=== PATIENT | male | born 1985 | race Asian ===

== ENCOUNTER 2018-07-06 15:34 | Emergency (ER) | payer OTHER ==
[~2018-07-06] VITALS: Ht 180.3 cm; Wt 95.3 kg
[2018-07-06 15:47] VITALS: BP 137/87
--- NOTE | 2018-07-06 16:32 | Emergency Room Report ---
History of Present Illness General Chief Complaint: Upper Extremity Injury Source: Patient Present Illness HPI 32-year-old male presents emergency department complaining of 6 out of 10 in severity pain is localized to the right wrist with associated swelling and tenderness. 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 Patient denies previous injury to this extremity. Denies numbness tingling or loss of sensation or gross motor movements of the extremities, incontinence of bowel or bladder. Denies CP, Palpitations, LOC, AMS, dizziness, Changes in Vision, weakness or a sudden severe headache. Allergies: Coded Allergies: No Known Allergies (Unverified , 07/06/18) Patient History Past Medical History: see triage record Past Surgical History: none Pertinent Family History: none Reviewed Nursing Documentation: PMH: Agreed; PSxH: Agreed Nursing Documentation-PMH Past Medical History: No History, Except For Hx Cardiac Problems: Yes - Rheumatic fever, heart murmur Hx Hypertension: Yes Review of Systems All Other Systems: negative except mentioned in HPI Physical Exam Vital Signs Date Time Temp Pulse Resp B/P (MAP) Pulse Ox O2 Delivery O2 Flow Rate FiO2 07/06/18 15:39 98.2 72 16 137/87 96 Room Air 98.2 Sp02 EP Interpretation: reviewed, normal General Appearance: alert, GCS 15, non-toxic, mild distress Head: normocephalic, atraumatic Eyes: bilateral eye normal inspection, bilateral eye PERRL ENT: hearing grossly normal, normal voice Neck: full range of motion Respiratory: lungs clear, normal breath sounds, speaking full sentences Cardiovascular #1: regular rate, rhythm, normal capillary refill Cardiovascular #2: 2+ radial (R), 2+ radial (L) Musculoskeletal: back normal, gait/station normal, normal range of motion, swelling - right wrist, tender - Lateral right wrist. Neurologic: alert, oriented x3, responsive, motor strength/tone normal, sensory intact, normal gait, speech normal, grossly normal Psychiatric: judgement/insight normal Skin: normal color, no rash, warm/dry, well hydrated Medical Decision Making PA Attestation Dr. Dahl is my supervising Physician whom patient management has been discussed with. Diagnostic Impression: Primary Impression: Injury of ulnar collateral ligament of wrist Qualified Codes: S66.801A - Unspecified injury of other specified muscles, fascia and tendons at wrist and hand level, right hand, initial encounter Additional Impression: Sprain of ulnar collateral ligament of wrist Qualified Codes: S63.591A - Other specified sprain of right wrist, initial encounter ER Course 32-year-old male presents emergency department complaining of 6 out of 10 in severity pain is localized to the right wrist with associated swelling and tenderness. 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 Patient denies previous injury to this extremity. Denies numbness tingling or loss of sensation or gross motor movements of the extremities, incontinence of bowel or bladder. Denies CP, Palpitations, LOC, AMS, dizziness, Changes in Vision, weakness or a sudden severe headache. Ddx considered but are not limited to Fracture, dislocation, contusion, Sprain/ Strain/Spasm, just to name a few. Vital signs: are WNL, pt. is afebrile H&PE are most consistent with musculoskeletal injury will perform imaging to r/ o fractures/dislocations. ORDERS: - X-ray Right Wrist 3 views : abnormal joint space of ulna ED INTERVENTIONS: - Motrin 600mg PO -Right volar wrist splint applied by community planning technician. Pt. remains neurovascularly intact. DISCHARGE: At this time pt. is stable for d/c to home. Will provide printed patient care instructions, and any necessary prescriptions. Care plan and follow up instructions have been discussed with the patient prior to discharge. Other X-Ray Diagnostic Results Other X-Ray Diagnostic Results : X-Ray ordered: Right wrist # of Views/Limited Vs Complete: 3 View Indication: Pain EP Interpretation: Yes RADHA Xray: Interpretation reviewed, by supervising MD, and agrees with findings. Interpretation: no dislocation, no soft tissue swelling, no fractures, other - irregular space between the ulna and metacarpals Impression: Other Electronically Signed by: Shikha Gonzalez PA-C Last Vital Signs Date Time Temp Pulse Resp B/P (MAP) Pulse Ox O2 Delivery O2 Flow Rate FiO2 07/06/18 16:19 98.2 07/06/18 15:47 72 16 137/87 96 Room Air Disposition: HOME, SELF-CARE Condition: Stable Scripts Ibuprofen* (MOTRIN*) 600 Mg Tablet 600 MG ORAL THREE TIMES A DAY, #30 TAB 0 Refills Prov: Shikha Gonzalez 07/06/18 Departure Forms: Return to Work Return to Work Date: Jul 08, 2018 Work Restrictions: No Heavy Lifting Other Restrictions: no/limited use of right hand, weight restriction 10lbs max. Patient Instructions: Wrist Sprain Additional Instructions: Take medications as directed. Follow up with an [employer] in 3-5 days, even if your symptoms have resolved. If symptoms persist MRI may be required at the discretion of your PCP or Ortho Specialist. --Please review list of primary care clinics, if you do not already have a primary care provider who can give you an Orthopedic Referral. Return sooner to ED if new symptoms occur, or current symptoms become worse. - Please note that this Emergency Department Report was dictated using [employer] analyst technology software, occasionally this can lead to erroneous entry secondary to interpretation by the dictation equipment. Shikha Gonzalez Jul 06, 2018 16:32
[2018-07-06] MEDS ORDERED: IBUPROFEN600 MG ORAL (16:35)
[2018-07-06 16:50] VITALS: BP 137/87
--- NOTE | 2018-07-06 16:58 | Diagnostic Imaging Report ---
Clinical Indication:Wrist pain Technique: 3 views of the right wrist Comparison: None Findings: No acute fractures. No dislocations. The joint spaces are preserved. Impression: Negative
== END 2018-07-06 16:50 | disposition home or self-care (01) ==
LOC: EMR 16:05
DX: S63.591A Other specified sprain of right wrist, initial encounter (principal); I10 Essential (primary) hypertension; R01.1 Cardiac murmur, unspecified; X50.9XXA Other and unspecified overexertion or strenuous movements or postures, initial encounter; Y93.F2 Activity, caregiving, lifting; Y92.9 Unspecified place or not applicable; Y99.0 Civilian activity done for income or pay
CPT/HCPCS: 99283